=== PATIENT | female | born 1990 | race Two or more races ===

== ENCOUNTER 2025-06-26 20:59 | Inpatient (IN) | payer BC, OTHER ==
[~2025-06-26] VITALS: Ht 152.4 cm; Wt 38.1 kg
[2025-06-26 21:01] VITALS: O2SAT 97
[2025-06-26 21:59] LABS: BASOPHILS % 0.3 % (0.0-2.0); EOSINOPHILS % 0.4 % (0.0-5.0); HEMATOCRIT. 43.8 % (36.0-48.0); HEMOGLOBIN. 14.4 g/dL (12.0-16.0); LYMPHOCYTES % 30.5 % (20.0-50.0); MEAN PLATELET VOLUME 10.7 fl (7.4-10.4); MONOCYTES % 9.2 % (2.0-8.0); NEUTROPHILS % 59.6 % (40.0-76.0); PLATELET 197 x1000/uL (130-400); RED BLOOD CELL COUNT 4.79 mill/uL (4.2-5.4); RED CELL DISTRIBUTION WIDTH 15.7 % (11.6-14.6)
[2025-06-26] MEDS: DEXTROSE 50% WATER 50ML SYRINGE IV ONE (22:09)
[2025-06-26] MEDS: SODIUM CHLORIDE 0.9% 1,000 ML IV ONE (22:09)
[2025-06-26 22:13] LABS: CREATININE 0.5 mg/dL (0.6-1.0); UREA NITROGEN BLOOD 7 mg/dL (9-23)
[2025-06-26 22:15] LABS: ASPARTATE AMINOTRANSFERASE 37 IU/L (<34); BILIRUBIN DIRECT 0.2 mg/dL (<=3.0); BILIRUBIN TOTAL 0.6 mg/dL (0.1-1.0); PROTEIN TOTAL 8.3 g/dL (6.0-8.3)
[2025-06-26 22:21] LABS: HCG SCREEN NEGATIVE
[2025-06-26 22:27] LABS: INR 1.1
[2025-06-26] MEDS: MORPHINE SULFATE 4 MG/ML INJ (FOR IV/IM USE) IV ONE (23:40)
[2025-06-26] MEDS: ONDANSETRON HCL 4MG/2ML INJ IV ONE (23:40)
[2025-06-26] MEDS: IOHEXOL-300 100 ML BOTTLE ONE (23:45)
[2025-06-27 03:32] VITALS: BP 100/58; PULSE 89; RESP 16; TEMP 36.418
[2025-06-27] MEDS ORDERED: ONDANSETRON HCL 4MG/2ML INJ IV PRN (03:45)
[2025-06-27] MEDS: DEXT 5%/0.45% NACL 1000ML 1,000 ML IV SCH (04:47)
[2025-06-27 08:00] VITALS: BP 102/51; PULSE 89; RESP 17; TEMP 36; O2SAT 99
[2025-06-27] MEDS: PANTOPRAZOLE SODIUM 40 MG/VIAL IV SCH (09:40)
[2025-06-27 12:00] VITALS: BP 102/57; PULSE 83; RESP 16; TEMP 36.1; O2SAT 98
[2025-06-27 16:00] VITALS: BP 104/58; PULSE 78; RESP 16; TEMP 36.3; O2SAT 99
[2025-06-27 20:00] VITALS: BP 88/48; PULSE 69; RESP 16; TEMP 36.3; O2SAT 100
[2025-06-28] VITALS: BP 98/61; PULSE 81; RESP 16; TEMP 36.2; O2SAT 100
[2025-06-28 04:00] VITALS: BP 95/60; PULSE 77; RESP 16; TEMP 36.4; O2SAT 98
[2025-06-28 07:56] VITALS: BP 93/58; PULSE 75; RESP 18; TEMP 35.5; O2SAT 94
[2025-06-28] MEDS ORDERED: ACETAMINOPHEN 325MG TABLET PO SCH (10:00)
[2025-06-28 12:00] VITALS: BP 94/55; PULSE 74; RESP 18; TEMP 36.4; O2SAT 100
[2025-06-28] MEDS ORDERED: ACETAMINOPHEN 325MG TABLET PO PRN (12:30)
[2025-06-28 16:00] VITALS: BP 99/66; PULSE 68; RESP 18; TEMP 36.7; O2SAT 100
[2025-06-28 17:40] VITALS: BP 99/66; PULSE 68; RESP 18; TEMP 98.1
[2025-06-28] MEDS ORDERED: MEST60 PO (17:59)
[2025-06-28] MEDS ORDERED: PRUC2TAB PO (17:59)
[2025-06-28] MEDS ORDERED: TADA20TA31 PO (17:59)
[2025-06-28] MEDS ORDERED: AMBR10TA5 PO (17:59)
== END 2025-06-28 19:00 | disposition home or self-care (01) | DRG 389 ==
LOC: ER 20:59 → 8EST 06-27 00:09 → EDBEDREQ 06-27 00:21 → EDBEDREQDT 06-27 00:21 → EDBEDREQTM 06-27 00:21 → ENRESERV 06-27 00:41
PROVIDERS: ADMIT Internal Medicine; ATTEND Internal Medicine
PROC: 0D9670Z Drainage of Stomach with Drainage Device, Via Natural or Artificial Opening (ICD-10-PCS; principal; 2025-06-26)
DX: K56.609 Unspecified intestinal obstruction, unspecified as to partial versus complete obstruction (principal); M35.89 Other specified systemic involvement of connective tissue
CPT/HCPCS: 36415; 71045; 74018; 74177; 80048; 80076; 82962; 84703; 85025; 86850; 86900; 93005; 96361; 96374; 96375; 99291; J2270; J2405; J2470; J7030; Q9967